=== PATIENT | female | born 1965 | race Caucasian/White ===

== ENCOUNTER → 2020-03-19 12:42 | Outpatient (CLI) | payer MEDICAID, SELFPAY ==
--- NOTE | 2020-03-19 12:59 | MR_ITS ---
PROCEDURE: MR HEAD/BRAIN WO CON CLINICAL INDICATION: encephalopathy Memory loss and confusion, headache and blurred vision COMPARISON: No exams were available for comparison TECHNIQUE: Routine multiplanar multi echo sequences are performed without gadolinium enhancement. FINDINGS: No midline shift, mass effect, intracranial hemorrhage, or hydrocephalus is evident. The cerebellopontine angles, cerebellum, and brainstem are unremarkable. The there is mild generalized atrophy. A faint area of increased T2 signal is present in the left gould radiata. This does not demonstrate restricted diffusion. The pituitary, optic chiasm, corpus callosum, and craniocervical junction have an unremarkable appearance. No mastoid effusion or sinus air-fluid level. The hippocampal gyri are unremarkable in the temporal horns are symmetric. IMPRESSION: 1. No acute intracranial findings. 2. Mild generalized atrophy with nonspecific small area of increased T2 signal in the left gould radiata somewhat ill-defined and could be due to small area of skin kristal gliotic change. Dictated by: Adraino Dahl MD 03/21/2020 09:32 Electronically signed by Adriano Dahl MD in [place] 03/21/2020 09:32
[2020-03-19 15:16] LABS: Basophils % 0.6 % (0.1-2.0); Eosinophils # 0.1 K/mm3 (0.0-0.4); Eosinophils % 1.6 % (0.1-12.0); Hemoglobin 15.5 g/dL (12.2-16.2); Lymphocytes # 1.8 K/mm3 (0.7-4.5); Lymphocytes % 27.2 % (10-50); Mean Corpuscular HGB Conc 35.3 g/dL (31.8-35.4); Mean Corpuscular Hemoglobin 32.2 pg (27.0-31.2); Mean Corpuscular Volume 91.3 fl (81-99); Monocytes # 0.2 K/mm3 (0.1-1.0); Monocytes % 3.5 % (1.7-9.3); Neutrophils # 4.5 K/mm3 (1.8-7.8); Neutrophils % 67.2 % (37.0-80.0); Platelet Count 203 K/mm3 (142-424); Red Blood Count 4.82 M/mm3 (4.20-5.40); Red Cell Distribution Width 13.1 % (11.5-17.5); White Blood Count 6.7 K/mm3 (4.8-10.8)
[2020-03-19 15:54] LABS: Hemoglobin A1C 10.2 % (4.0-6.0)
[2020-03-19 17:58] LABS: Erythrocyte Sedimentation Rate 16 mm/hr (0-30)
[2020-03-19 18:06] LABS: Alanine Aminotransferase 44 U/L (12-78); Albumin Level 4.5 g/dl (3.5-5.0); Albumin/Globulin Ratio 1.7 (1.1-1.8); Alkaline Phosphatase 132 U/L (38-126); Anion Gap 12.8 mEq/L (5-15); Aspartate Amino Transferase 39 U/L (14-36); Bilirubin,Total 1.6 mg/dl (0.2-1.3); Blood Urea Nitrogen 18 mg/dl (7-17); Calcium 9.8 mg/dl (8.4-10.2); Carbon Dioxide 29 mmol/L (22.0-30.0); Chloride 98 mmol/L (98-107); Estimated Glomerular Filt Rate 87 ml/min (>60); GFR (African American) 106 ML/MIN (>60); Globulin 2.7 g/dL (1.3-3.2); Glucose 355 mg/dl (74-100); Potassium 4.8 mmoL/L (3.5-5.1); Sodium 135 mmol/L (136-145); Total Protein,Serum 7.2 g/dl (6.3-8.2)
[2020-03-19 18:36] LABS: Thyroid Stimulating Hormone 1.15 uIU/mL (0.465-4.68)
[2020-03-25 11:25] LABS: Vitamin B12 884
[2020-03-25 11:29] LABS: Folate 11.7
[2020-03-25 11:33] LABS: Anti-DNA (DS) Ab Qn 1
[2020-03-25 11:37] LABS: Anti-Smith Antibody <0.2; Antiscleroderma-70 Antibodies <0.2; RNP Antibodies <0.2
[2020-03-25 11:38] LABS: Antichromatin Antibodies <0.2; Sjogren's Anti-SS-A <0.2; Sjogren's Anti-SS-B <0.2
[2020-03-25 11:39] LABS: Anti-Jo-1 <0.2
[2020-03-25 11:46] LABS: Anti-Centromere B Antibodies <0.2
== END ==
PROVIDERS: Visit Provider Specialist
DX: G93.40 Encephalopathy, unspecified (principal); R41.3 Other amnesia; R47.9 Unspecified speech disturbances; E11.65 Type 2 diabetes mellitus with hyperglycemia; G47.33 Obstructive sleep apnea (adult) (pediatric); Z95.1 Presence of aortocoronary bypass graft
CPT/HCPCS: 36415; 70551; 80053; 82607; 82746; 83036; 84443; 85025; 85651; 86225; 86235